=== PATIENT | male | born 1960 | race Caucasian/White ===

== ENCOUNTER 2023-09-30 14:01 | Emergency (ER) | payer OTHER, SELFPAY ==
[2023-09-30] VITALS (7 sets, daily range): BP systolic 152–173; BP diastolic 88–100; PULSE 89–95; RESP 18–20; TEMP 38.3–38.4; O2SAT 93–95; BMI 32.3
--- NOTE | 2023-09-30 14:16 | ED_ITS ---
HPI - General Adult General Time Seen by Provider: 14:16 Date Seen: 09/30/23 Chief complaint: Cough Stated complaint: trouble breathing, cough Time Seen by Provider: 09/30/23 14:02 Source: patient and RN notes reviewed Mode of arrival: ambulatory Limitations: no limitations History of Present Illness HPI narrative: Patient is a 62-year-old male accompanied by his not feeling well. He has been coughing, no chest pain, not short of breath. Denies any chronic cardiopulmonary issues, denies chronic health issues. He has not really checked his temperature but has felt hot and warm, then cold. He has had a headache, did take some medication for it. He has had significant body aches, Tylenol and ibuprofen are not helping. He has had nasal congestion, sore throat. No GI symptoms. No definite known ill contacts. He is coughing a lot, feels like it is tight, is not really bringing anything up. He has been sick for 4 days now. Related Data Home Medications Medication Instructions Recorded Confirmed atorvastatin 40 mg tablet 40 mg PO QPM 09/30/23 09/30/23 glipizide 10 mg tablet 20 mg PO BID 09/30/23 09/30/23 hydrochlorothiazide 25 mg tablet 25 mg PO DAILY 09/30/23 09/30/23 lisinopril 40 mg tablet 40 mg PO DAILY 09/30/23 09/30/23 metformin 500 mg tablet 1,000 mg PO BID 09/30/23 09/30/23 methylphenidate HCl 20 mg tablet 20 mg PO BID 09/30/23 09/30/23 omeprazole 20 mg capsule,delayed 20 mg PO DAILY 09/30/23 09/30/23 release pioglitazone 30 mg tablet 30 mg PO DAILY 09/30/23 09/30/23 Allergies Allergy/AdvReac Type Severity Reaction Status Date / Time No Known Drug Allergies Allergy Verified 09/30/23 14:09 Review of Systems Status of ROS: Reports: 6 or more systems reviewed and unremarkable except as noted in History and below [facility] Social History Smoking Status: Former smoker How often do you have a drink containing alcohol: monthly or less AUDIT-C Alcohol total score: 1 Non-prescribed substance use: denies use service: No Exam Const: Vital Signs, click to edit/add: Vital Signs - 24 hr 09/30/23 14:06 09/30/23 14:21 09/30/23 14:30 Temperature 100.9 F H 100.9 F H 100.9 F H Pulse Rate [Right Pulse Oximeter] 93 89 91 Respiratory Rate 18 20 20 Blood Pressure [Ri ght Upper Arm] 162/96 H 165/93 H 173/96 H Pulse Oximetry 95 94 94 Oxygen Delivery Me thod Room Air Room Air Room Air 09/30/23 14:39 09/30/23 15:15 09/30/23 16:39 Temperature 101.2 F H Pulse Rate [Right Pulse Oximeter] 95 92 Respiratory Rate 20 20 Blood Pressure [Ri ght Upper Arm] 154/88 H 156/96 H Pulse Oximetry 94 93 95 Oxygen Delivery Me thod Room Air Room Air Patient's face is flushed but no rash. Conjugate gaze, pupils are equal and round, sclerae are clear. Symmetrical facial function, speech is normal, does have a dry sounding cough during the interaction but is able to speak in complete sentences. He has no hoarseness. Neck is thick, note no cervical adenopathy. Lungs are clear, good air entry, no wheezing or crackles noted, no tachypnea. CV regular rate and rhythm, no murmur, normal S1-S2, no S3 or S4. Patient is ambulatory into the ED of his own accord. Documenting provider has reviewed patient's vital signs: yes Course Course ED Course: Patient is had the triple swab collected by nursing staff already. Will have him on pulse oximetry. We will get a portable chest x-ray and some basic labs. He would be in the window for treatment of COVID, will get a basic metabolic panel. We will rule out and consider bacterial pneumonia as well. Reevaluation(s) Time of Reevaluation #1: 16:05 Reevaluation #1: Reviewed with patient we are still awaiting his chest x-ray to be read by Radiology. We reviewed that he does have RSV and expectations with this diagnosis. Patient does confirm that he is diabetic, ate ice cream prior to coming in and does not think he actually took his diabetic medicines today. We did review that his sugar was elevated at 335. He maintains non hypoxic state. Time of Reevaluation #2: 16:50 Reevaluation #2: Did review with patient and his that he is RSV, chest x-ray is negative, white blood count is normal, is not hypoxic. Put pulse oximetry back on when I was in talking to him, he is at 95-96%. Respiratory therapy did evaluate as well. Given he is diabetic and sugars are up, do not feel that prednisone is actually going to be beneficial for him, may actually be detrimental. He does not need antibiotics at this time. We discussed signs and symptoms for return, this is just going to take time. If he is worsening, he will need re- evaluation. Vital Signs Vital signs: Initial Vital Signs Temperature 100.9 F H 09/30/23 14:06 Temperature Source Temporal Artery Scan 09/30/23 14:06 Pulse Rate 93 09/30/23 14:06 Respiratory Rate 18 09/30/23 14:06 Blood Pressure 162/96 H 09/30/23 14:06 Blood Pressure Mean 118 H 09/30/23 14:06 Blood Pressure Position Sitting 09/30/23 14:06 Pulse Oximetry 95 09/30/23 14:06 Oxygen Delivery Method Room Air 09/30/23 14:06 Vital Signs Temperature 100.9 F H 09/30/23 14:06 Pulse Rate 93 09/30/23 14:06 Respiratory Rate 18 09/30/23 14:06 Blood Pressure 162/96 H 09/30/23 14:06 Pulse Oximetry 95 09/30/23 14:06 Oxygen Delivery Method Room Air 09/30/23 14:06 Temperature 101.2 F H 09/30/23 15:15 Pulse Rate 92 09/30/23 16:39 Respiratory Rate 20 09/30/23 16:39 Blood Pressure 156/96 H 09/30/23 16:39 Pulse Oximetry 95 09/30/23 16:39 Oxygen Delivery Method Room Air 09/30/23 16:39 Medications Administered Medications: Generic Name Dose Route Start Last Admin Trade Name Freq PRN Reason Stop Dose Admin Sodium Chloride 500 mls @ 500 mls/hr 09/30/23 16:06 09/30/23 16:36 0.9 % Sodium Chloride 500 Ml IV 09/30/23 17:05 500 mls/hr .Q1H ONE Administration Discontinued Medications Generic Name Dose Route Start Last Admin Trade Name Freq PRN Reason Stop Dose Admin Acetaminophen 1,000 mg 09/30/23 15:38 12/23/23 15:45 Acetaminophen 500 Mg Tablet PO 09/30/23 15:39 1,000 mg ONCE ONE Administration Medical Decision Making Lab Data Lab results reviewed: Yes I reviewed the patient's lab results Labs: Lab Results 09/30/23 09/30/23 Range/Units 14:13 14:39 WBC 7.80 (4.50-11.00) K/uL RBC 4.56 (4.30-5.90) m/uL Hgb 14.7 (13.5-17.5) gm/dL Hct 42.1 (37.0-53.0) % MCV 92 (80-100) fL MCH 32 (26-34) pg MCHC 35 (32-36) gm/dL RDW Coeff of Devan 11.7 (11.5-15.5) % Plt Count 153 (140-440) K/uL Neut % (Auto) 89.8 H (42.0-72.0) % Lymph % (Auto) 4.9 L (20-44) % Kern % (Auto) 4.1 (0.0-11.0) % Eos % (Auto) 0.8 (0.0-7.0) % Baso % (Auto) 0.1 (0.0-3.0) % Neut # (Auto) 7.00 (1.7-7.0) K/uL Lymph # (Auto) 0.40 L (0.90-2.90) K/uL Kern # (Auto) 0.30 (0.00-0.90) K/UL Eos # (Auto) 0.06 (0.00-0.50) K/uL Baso # (Auto) 0.01 (0.00-0.30) K/uL Abs Immat Gran (auto) 0.02 (0.00-0.30) K/uL Imm/Tot Granulo (auto) 0.3 % Sodium 133 L (135-149) mmol/L Potassium 4.5 (3.6-5.1) mmol/L Chloride 97 (96-114) mmol/L Carbon Dioxide 27 (20-32) mmol/L Anion Gap 9 (7-15) mEq/L BUN 18 (7-30) mg/dL Creatinine 0.8 (0.5-1.5) mg/dL Estimated Creat Clear 78.07 Estimated GFR 99 ml/min Glucose 355 H* (60-115) mg/dL Calcium 8.9 (8.4-10.6) mg/dL C-Reactive Protein 2.2 H (0.5-1.0) mg/dL SARS-CoV-2 (PCR) Negative SARS-CoV-2 (Negative) Influenza Type A (PCR) Negative PCR FLU A (Negative) Influenza Type B (PCR) Negative PCR FLU B (Negative) RSV (PCR) POSITIVE PCR RSV A (Negative) Imaging Data Chest x-ray: Attestation: I have reviewed the pertinent imaging results. My impression: No definitive acute pathology on my preliminary read. Radiologist's impression: Patient: DANY ALTAMONT Facility:?[facility] Patient ID:?[id number] Site Patient ID:?[id number]. Site :?[id number] Study:?XRay Chest 1v portable-09/30/2023 2:49:31 PM Ordering Physician:?Amrita Ramirez Final Report: INDICATION: Cough and fever. TECHNIQUE: Chest 1 view. COMPARISON: None FINDINGS: Cardiovascular and mediastinum: Heart size and vasculature are normal in caliber and appearance. Mediastinum is within normal limits. Lungs and pleural space: Lungs are clear. No sign of infiltrate or mass. No sign of pleural effusion. No pneumothorax. Bones and soft tissues: No significant findings. IMPRESSION: Unremarkable chest. Dictated by Zachery Thomason MD @ 09/30/2023 4:04:16 PM (Electronic Signature) Discharge Plan Discharge Clinical Impression: Hyperglycemia due to diabetes mellitus, Respiratory syncytial virus (RSV) Patient Disposition: Home, Self-Care Condition: Stable Instructions: RSV (Respiratory Syncytial Virus) (ED) Additional Instructions: Do recommend taking Tylenol and ibuprofen alternating every 3-4 hours following bottle directions for dosing for symptom control. Use the Aerobika as advised by physical therapy. Would recommend that you get up and move slowly once every hour while awake or as your tolerance level allows activity. This will help keep the lungs open, help keep you oxygenating. It may not be a bad idea to get an oximeter. If your oximeter is consistently going below 89%, you feel like you are worsening, have increased difficulty breathing or shortness of breath, do recommend re-evaluation in the ER. Right now antibiotics are not indicated as this is viral. Do need you to take your diabetic medicines, controlled diabetes is better for healing. Activity Level: Activity as Tolerated Discharge Diet: Diabetic Prescriptions: No Action atorvastatin 40 mg tablet 40 mg PO QPM metformin 500 mg tablet 1,000 mg PO BID methylphenidate HCl 20 mg tablet 20 mg PO BID glipizide 10 mg tablet 20 mg PO BID omeprazole 20 mg capsule,delayed release(DR/EC) 20 mg PO DAILY hydrochlorothiazide 25 mg tablet 25 mg PO DAILY pioglitazone 30 mg tablet 30 mg PO DAILY lisinopril 40 mg tablet 40 mg PO DAILY Follow Up/Referrals: Beau Loyola MD [Referring] - Stand Alone Forms: [employer] Info Instructions
--- NOTE | 2023-09-30 14:25 | CRLHL7_ITS ---
For Patients: As a result of the Cures Act, medical imaging exams and procedure reports are released immediately into your electronic medical record. You may view this report before your referring provider. If you have questions, please contact your health care provider. INDICATION: Cough and fever. TECHNIQUE: Chest 1 view. COMPARISON: None FINDINGS: Cardiovascular and mediastinum: Heart size and vasculature are normal in caliber and appearance. Mediastinum is within normal limits. Lungs and pleural space: Lungs are clear. No sign of infiltrate or mass. No sign of pleural effusion. No pneumothorax. Bones and soft tissues: No significant findings. IMPRESSION: Unremarkable chest. Dictated by Zachery Thomason MD @ 09/30/2023 4:04:16 PM (Electronically Signed)
[2023-09-30 15:00] LABS: PCR FLU A Negative PCR FLU A (Negative); PCR FLU B Negative PCR FLU B (Negative); PCR RSV POSITIVE PCR RSV (Negative)
[2023-09-30 15:01] LABS: Chloride* 97 mmol/L (96-114); Potassium* 4.5 mmol/L (3.6-5.1); Sodium* 133 mmol/L (135-149)
[2023-09-30 15:02] LABS: SARS PCR* Negative SARS-CoV-2 (Negative)
[2023-09-30 15:04] LABS: Creatinine* 0.8 mg/dL (0.5-1.5); Est. Creatinine Clearance* 78.07; Estimated Glomerular Filt Rate 99 ml/min
[2023-09-30 15:05] LABS: Anion Gap 9 mEq/L (7-15); Blood Urea Nitrogen* 18 mg/dL (7-30); Calcium* 8.9 mg/dL (8.4-10.6); Carbon Dioxide* 27 mmol/L (20-32)
[2023-09-30 15:07] LABS: C Reactive Protein* 2.2 mg/dL (0.5-1.0)
[2023-09-30 15:23] LABS: Glucose* 355 mg/dL (60-115)
[2023-09-30] MEDS: ACETAMINOPHEN 500 MG TABLET 1000 MG PO (15:45)
[2023-09-30 16:21] LABS: Basophils Absolute Auto 0.01 K/uL (0.00-0.30); Basophils Percent Auto 0.1 % (0.0-3.0); Eosinophils Absolute Auto 0.06 K/uL (0.00-0.50); Eosinophils Percent Auto 0.8 % (0.0-7.0); Hematocrit 42.1 % (37.0-53.0); Hemoglobin* 14.7 gm/dL (13.5-17.5); Immature Granulocytes Abs Auto 0.02 K/uL (0.00-0.30); Immature Granulocytes Pct Auto 0.3 %; Lymphocytes Percent Auto 4.9 % (20-44); Mean Corpuscular HGB Conc 35 gm/dL (32-36); Mean Corpuscular Hemoglobin 32 pg (26-34); Mean Corpuscular Volume 92 fL (80-100); Monocytes Percent Auto 4.1 % (0.0-11.0); Neutrophils Percent Auto 89.8 % (42.0-72.0); Platelet Count* 153 K/uL (140-440); RDW Coefficient of Variation % 11.7 % (11.5-15.5); Red Blood Count 4.56 m/uL (4.30-5.90)
[2023-09-30 16:22] LABS: Slide Review Reflex No
[2023-09-30] MEDS: 0.9 % SODIUM CHLORIDE 500 ML 500 ML IV (16:36)
--- NOTE | 2023-09-30 17:27 | PC.NURSE ---
went over discharge paperwork with pt and . sL was d/c intact. answered all questions. pt left with paperwork
== END 2023-09-30 17:25 | disposition home or self-care (01) ==
PROVIDERS: Emergency Provider Family Medicine; PCP Family Medicine
DX: E11.65 Type 2 diabetes mellitus with hyperglycemia (principal); B97.4 Respiratory syncytial virus as the cause of diseases classified elsewhere
CPT/HCPCS: 36415; 71045; 80048; 85025; 86140; 87631; 94664; 94761; 99284; A9270; J7120

== ENCOUNTER 2023-10-07 11:49 | Emergency (ER) | payer OTHER, SELFPAY ==
[2023-10-07 11:54] VITALS: BP 145/84; PULSE 79; RESP 22; TEMP 36.9; O2SAT 96; BMI 31.6
[2023-10-07 12:09] VITALS: BP 146/87; PULSE 79; RESP 28; O2SAT 94
--- NOTE | 2023-10-07 12:15 | CRLHL7_ITS ---
For Patients: As a result of the Century Cures Act, medical imaging exams and procedure reports are released immediately into your electronic medical record. You may view this report before your referring provider. If you have questions, please contact your health care provider. INDICATION: Facial pain. Congestion. TECHNIQUE: Noncontrast CT images of the paranasal sinuses. COMPARISON: None. FINDINGS: Large right and moderate left maxillary sinus air-fluid levels. There is circumferential maxillary sinus mucosal thickening bilaterally. The ethmoid infundibula are opacified. Severe opacification of the frontal recesses. There is otherwise mild mucosal thickening in the frontal sinuses. Moderate opacification of the ethmoid air cells. [id number] mucosal thickening in the sphenoid sinuses. The sphenoethmoidal recesses are opacified. Mild rightward nasal septal deviation. Small leftward directed septal spur contacting the left middle nasal turbinate. Partial opacification of the middle meati may be secondary to secretions. The mastoid air cells are clear. IMPRESSION: 1. Large right and moderate left maxillary sinus air-fluid levels can be seen in the setting of acute sinusitis. There is severe opacification of the frontal recesses and moderate opacification of the ethmoid air cells. 2. Mild rightward nasal septal deviation. Leftward directed septal spur contacting the left middle nasal turbinate. Please note that all CT scans at this facility use dose modulation, iterative reconstruction, and/or weight-based dosing when appropriate to reduce radiation dose to as low as reasonably achievable. Dictated by Vance Lima MD @ 10/07/2023 1:34:14 PM (Electronically Signed)
--- NOTE | 2023-10-07 12:16 | ED.GENADULT ---
HPI - General Adult General Chief complaint: Shortness of Breath/Dyspnea Stated complaint: RSV+, difficulty breathing Time Seen by Provider: 10/07/23 12:06 Related Data Home Medications Medication Instructions Recorded Confirmed atorvastatin 40 mg tablet 40 mg PO QPM 09/30/23 10/07/23 glipizide 10 mg tablet 20 mg PO BID 09/30/23 10/07/23 hydrochlorothiazide 25 mg tablet 25 mg PO DAILY 09/30/23 10/07/23 lisinopril 40 mg tablet 40 mg PO DAILY 09/30/23 10/07/23 metformin 500 mg tablet 1,000 mg PO BID 09/30/23 10/07/23 methylphenidate HCl 20 mg tablet 20 mg PO BID 09/30/23 10/07/23 omeprazole 20 mg capsule,delayed 20 mg PO DAILY 09/30/23 10/07/23 release pioglitazone 30 mg tablet 30 mg PO DAILY 09/30/23 10/07/23 Previous Rx's Medication Instructions Recorded acetaminophen 300 mg-codeine 30 mg 1 tab PO Q6H PRN pain #20 tabs 10/07/23 tablet amoxicillin 875 mg-potassium 1 tab PO BID #20 tabs 10/07/23 clavulanate 125 mg tablet Allergies Allergy/AdvReac Type Severity Reaction Status Date / Time No Known Drug Allergies Allergy Verified 10/07/23 11:54 PFSH [facility] Social History Smoking Status: Former smoker Do you use any of these nicotine containing products: None Second hand tobacco smoke exposure: No How often do you have a drink containing alcohol: monthly or less How many standard drinks containing alcohol do you have on a typical day: 1 or 2 How often do you have six or more drinks on one occasion: Never AUDIT-C Alcohol total score: 1 Non-prescribed substance use: denies use service: No Exam Const: Vital Signs, click to edit/add: Vital Signs - 24 hr 10/07/23 11:54 10/07/23 12:09 Temperature 98.5 F Pulse Rate [Pulse Oximeter] 79 79 Respiratory Rate 22 28 H Blood Pressure [Ri ght Upper Arm] 145/84 H 146/87 H Pulse Oximetry 96 94 Oxygen Delivery Me thod Room Air Room Air Course Vital Signs Vital signs: Initial Vital Signs Temperature 98.5 F 10/07/23 11:54 Temperature Source Temporal Artery Scan 10/07/23 11:54 Pulse Rate 79 10/07/23 11:54 Respiratory Rate 22 10/07/23 11:54 Blood Pressure 145/84 H 10/07/23 11:54 Blood Pressure Mean 104 10/07/23 11:54 Blood Pressure Position Sitting 10/07/23 11:54 Pulse Oximetry 96 10/07/23 11:54 Oxygen Delivery Method Room Air 10/07/23 11:54 Vital Signs Temperature 98.5 F 10/07/23 11:54 Pulse Rate 79 10/07/23 11:54 Respiratory Rate 22 10/07/23 11:54 Blood Pressure 145/84 H 10/07/23 11:54 Pulse Oximetry 96 10/07/23 11:54 Oxygen Delivery Method Room Air 10/07/23 11:54 Temperature 98.5 F 10/07/23 11:54 Pulse Rate 79 10/07/23 12:09 Respiratory Rate 28 H 10/07/23 12:09 Blood Pressure 146/87 H 10/07/23 12:09 Pulse Oximetry 94 10/07/23 12:09 Oxygen Delivery Method Room Air 10/07/23 12:09 Medical Decision Making MDM Narrative Medical decision making narrative: This patient comes in with cough and significant facial pain. He has had RSV but those symptoms have improved. CT imaging of the sinuses is obtained and does show fluid levels in both maxillary sinuses right greater than left. The patient did receive a prescription for Augmentin and Tylenol 3. I advised also using Flonase or Nasonex as directed. Imaging Data CT Sinuses: Radiologist's impression: 1. Large right and moderate left maxillary sinus air-fluid levels can be seen in the setting of acute sinusitis. There is severe opacification of the frontal recesses and moderate opacification of the ethmoid air cells. 2. Mild rightward nasal septal deviation. Leftward directed septal spur contacting the left middle nasal turbinate. Discharge Plan Discharge Clinical Impression: Sinusitis Patient Disposition: Home, Self-Care Condition: Stable Additional Instructions: Take medication as prescribed. Follow up with MD or return if worsening. Prescriptions: New acetaminophen-codeine 300-30 mg tablet 1 tab PO Q6H PRN (Reason: pain) Qty: 20 0RF amoxicillin-pot clavulanate 875-125 mg tablet 1 tab PO BID Qty: 20 0RF No Action atorvastatin 40 mg tablet 40 mg PO QPM metformin 500 mg tablet 1,000 mg PO BID methylphenidate HCl 20 mg tablet 20 mg PO BID glipizide 10 mg tablet 20 mg PO BID omeprazole 20 mg capsule,delayed release(DR/EC) 20 mg PO DAILY hydrochlorothiazide 25 mg tablet 25 mg PO DAILY pioglitazone 30 mg tablet 30 mg PO DAILY lisinopril 40 mg tablet 40 mg PO DAILY Follow Up/Referrals: Candice Lozano DO [Primary Care Provider] - Stand Alone Forms: [facility] Info Instructions
[2023-10-07 12:30] VITALS: BP 156/89; PULSE 83; O2SAT 93
[2023-10-07 13:30] VITALS: BP 158/87; PULSE 85; RESP 18; O2SAT 94
== END 2023-10-07 13:50 | disposition home or self-care (01) ==
PROVIDERS: Emergency Provider Emergency Medicine Emergency Medical Services; PCP Family Medicine
DX: J32.9 Chronic sinusitis, unspecified (principal)
CPT/HCPCS: 70486; 99284